=== PATIENT | female | born 1975 | race African-American/Black ===

== ENCOUNTER 2016-11-26 11:07 | Emergency (ER) | payer BC ==
[2016-11-26 11:13] VITALS: BP 160/98; PULSE 81; TEMP 97.7; BMI 33.6
[2016-11-26] MEDS ORDERED: DEXAMETHASONE LIQUID 0.5 MG/5 ML 240 ML BULK BOTTLE PO ONE (11:41)
[2016-11-26] MEDS ORDERED: DEXAMETHASONE SOD PHOSPHATE 10 MG/1 ML VIAL ONE (11:59)
--- NOTE | 2016-11-26 12:03 | PDOC ---
History of Present Illness - General Chief Complaint: Sore Throat Stated Complaint: SORE THROAT Time Seen by Provider: 11/26/16 11:13 - History of Present Illness Initial Comments: 11/26/16 11:37 CHIEF COMPLAINT: sore throat HISTORY OF PRESENT ILLNESS: 41 yo F presents to [facility] with sore throat x 4 days. Patient reports that she "had tonsillitis when I was younger but haven't had it since my 20s." She reports having a dry cough as well as a feeling of swelling in her throat last night and today. She states that she felt difficulty swallowing this morning and "maybe a little difficulty speaking today." She denies any fever, nausea, vomiting, diarrhea, runny nose, sneezing, congestion. No recent travel or sick contacts. PAST MEDICAL HISTORY: Denies past medical history FAMILY HISTORY: Denies SOCIAL HISTORY: Denies tobacco, alcohol, illicit drug use. SURGICAL HISTORY: Denies ALLERGIES: No known drug allergies REVIEW OF SYSTEMS General/Constitutional: Denies fever or chills. Denies weakness, weight change. HEENT: Sore throat x 4 days. Denies change in vision. Denies ear pain or discharge. Cardiovascular: Denies chest pain or shortness of breath. Respiratory: Denies cough, wheezing, or hemoptysis. Gastrointestinal: Denies nausea, vomiting, diarrhea or constipation. Denies rectal bleeding. Genitourinary: Denies dysuria, frequency, or change in urination. Musculoskeletal: Denies joint or muscle swelling or pain. Denies neck or back pain. Skin and breasts: Denies rash or easy bruising. Neurologic: Denies headache, vertigo, loss of consciousness, or loss of sensation. PHYSICAL EXAM General Appearance: Well-appearing, appropriately dressed. No apparent distress. HEENT: Tonsils erythematous b/l, no exudate. R tonsil 3+, L tonsil 2+. EOMI, PERRLA, TMs normal. No conjunctival pallor. No photophobia, scleral icterus. Neck: Supple. Trachea midline. No tenderness, rigidity, carotid bruit, stridor , lymphadenopathy, or thyromegaly. Respiratory/Chest: Lungs CTAB. Cardiovascular: RRR. S1, S2. Gastrointestinal/Abdominal: Normal bowel sounds. Abdomen soft, non-distended. No tenderness or rebound tenderness. No organomegaly, pulsatile mass, guarding , hernia, hepatomegaly, splenomegaly. Musculoskeletal/Extremities: Normal inspection. FROM of all extremities, normal capillary refill. Pelvis Stable. No CVA tenderness. No tenderness to extremities, pedal edema, swelling, erythema or deformity. Integumentary: Appropriate color, dry, warm. No cyanosis, erythema, jaundice or rash Neurologic: third miller II-XII intact. Fully oriented, alert. Appropriate mood/affect. Motor strength 5/5. No appreciable EOM palsy, facial droop or sensory deficit. 11/26/16 12:03 Past History - Past Medical History Allergies/Adverse Reactions: Allergies Allergy/AdvReac Type Severity Reaction Status Date / Time No Known Allergies Allergy Verified 11/26/16 11:13 Home Medications: Ambulatory Orders Loratadine [Alavert] 10 mg PO DAILY #30 tab.rapdis 11/26/16 - Surgical History Cholecystectomy: Yes - Psycho/Social/Smoking Cessation Hx Suicidal Ideation: No Smoking History: Never smoked Information on smoking cessation initiated: No *Physical Exam - Vital Signs Last Vital Signs Temp Pulse Resp BP Pulse Ox 97.7 F 81 18 160/98 100 11/26/16 11:08 11/26/16 11:08 11/26/16 11:08 11/26/16 11:08 11/26/16 11:08 Medical Decision Making - Medical Decision Making 11/26/16 12:04 41 yo F presents to [facility] with sore throat x 4 days. -Rapid strep -10 mg Decadron 11/26/16 12:38 PAtient reassessed; she states she is feeling better at this time and she is able to speak in full sentences comfortably. Advised patient to take medication as prescribed and f/u with ENT for possible elective tonsillectomy. Advised patient of signs and symptoms for return to ER ; patient verbalized understanding and agrees to plan. *DC/Admit/Observation/Transfer Diagnosis at time of Disposition: Viral tonsillitis - Discharge Dispostion Admit: No - Prescriptions Prescriptions: Loratadine [Alavert] 10 mg PO DAILY #30 tab.rapdis - Referrals Referrals: Dalton Dailey MD [Staff Physician] - - Patient Instructions Printed Discharge Instructions: DI for Pharyngitis/Tonsillopharyngitis -- Adult Additional Instructions: Please take medication as prescribed. Follow up with ENT if your symptoms persist past 2 days. If you experience any further swelling of your throat, mouth, lips, tongue, or neck; change in your voice or difficulty speaking; shortness of breath; or any new or worsening symptoms, please return to the ER.
== END 2016-11-26 13:07 | disposition home or self-care (01) ==
LOC: JERFT 11:07
DX: J03.90 Acute tonsillitis, unspecified (principal); B97.89 Other viral agents as the cause of diseases classified elsewhere
CPT/HCPCS: 87070; 87430; 99281-25